=== PATIENT | female | born 1995 | race Caucasian/White ===

== ENCOUNTER 2021-01-04 15:28 | Emergency (ER) | payer OTHER ==
[~2021-01-04] VITALS: Ht 165.1 cm; Wt 65.9 kg
[2021-01-04 15:28] VITALS: BP 131/66
--- NOTE | 2021-01-04 16:10 | REP ---
INDICATION: pain COMPARISON: None. TECHNIQUE: AP, lateral, bilateral oblique views. FINDINGS: Mild swelling suggested. No acute fracture or dislocation. Skeletal structures and joint spaces are intact and normal. Ankle mortise appears stable. No subcutaneous emphysema or radiodense foreign body. IMPRESSION: Mild swelling. No acute fracture or dislocation. <Electronically signed by Charlie Brannon > 01/04/21 [id number]
== END 2021-01-04 17:15 | disposition home or self-care (01) ==
LOC: M ED 15:28
DX: S93.402A Sprain of unspecified ligament of left ankle, initial encounter (principal); Y92.9 Unspecified place or not applicable; Y93.9 Activity, unspecified; Y99.9 Unspecified external cause status